=== PATIENT | female | born 1965 | race Caucasian/White ===

== ENCOUNTER 2016-12-04 17:54 | Emergency (ER) | payer MEDICAID ==
[~2016-12-04] VITALS: Ht 162.6 cm; Wt 69.0 kg
[~2016-12-04 17:54] MED LIST: IBUP-1542 PO; OXYC-281 PO
[2016-12-04 17:56] VITALS: Ht 162.6 cm; Wt 69.0 kg
[2016-12-04] MEDS ORDERED: LORA-441 PO (19:02)
[2016-12-04] MEDS ORDERED: TRAM50TA2 PO (19:02)
--- NOTE | 2016-12-04 19:04 | ERD ---
ER Documentation Chief Complaint Date/Time DATE: 12/04/16 TIME: 19:03 Chief Complaint HEADACHE X 4 DAYS HPI This 51-year-old female presents with pain in her face and her bilateral jaw last 4 days. She believes it may be due to stress. Pain is primarily in her TMJ area and maxillary area patient has a history of trauma, fevers, difficulty swallowing, difficulty breathing. She denies any visual changes, vomiting, additional symptoms. ROS All systems reviewed and are negative except as per history of present illness. Medications Home Meds Active Scripts Lorazepam* (Ativan*) 0.5 Mg Tablet, 0.5 MG PO Q8, #12 TAB Prov:DOLORES LANDIN MD 12/04/16 Tramadol HCl (Tramadol HCl) 50 Mg Tablet, 50 MG PO Q4 Y for PAIN, #20 TAB Prov:DOLORES LANDIN MD 12/04/16 Ibuprofen* (Motrin*) 600 Mg Tab, 600 MG PO Q8 for PAIN, #30 Prov:KARI WEEKS MD 04/23/15 Oxycodone Hcl-Acetaminophen* (Percocet*) 5-325 Mg Tablet, 1 TAB PO Q4H Y for PAIN, #10 TAB Prov:KARI WEEKS MD 04/23/15 Allergies Allergies: Coded Allergies: No Known Allergy (Unverified , 04/23/15) PMhx/Soc History of Surgery: Yes (TUBAL LIGATION) Anesthesia Reaction: No Hx Neurological Disorder: No Hx Respiratory Disorders: No Hx Cardiac Disorders: No Hx Psychiatric Problems: No Hx Miscellaneous Medical Probl: No Hx Alcohol Use: No Hx Substance Use: No Hx Tobacco Use: No Physical Exam Vitals Vital Signs Date Time Temp Pulse Resp B/P Pulse Ox O2 Delivery O2 Flow Rate FiO2 12/04/16 17:56 97.8 72 18 147/77 99 Physical Exam Const: [] Alert, [id number] per Head: Atraumatic Eyes: Normal Conjunctiva. Eyes are PERRLA and extraocular movements intact. ENT: Normal External Ears, Nose and Mouth. There is tenderness primarily in the bilateral TMJ joints and slightly in the maxillary area. There is no oral lesions or erythema or swelling and airway is patent. Neck: Full range of motion..~ No meningismus. Resp: Clear to auscultation bilaterally Cardio: Regular rate and rhythm, no murmurs Abd: Soft, non tender, non distended. Normal bowel sounds Skin: No petechiae or rashes Back: No midline or flank tenderness Ext: No cyanosis, or edema Neur: Awake and alert Psych: Normal Mood and Affect Procedures/MDM This patient presents with facial pain for last 4 days. It appears to be localized to the TMJ joint. There is no evidence of cellulitis, airway obstruction and no evidence of any concerning headache symptoms. There is no signs of neurologic deficit, signs of bacterial infection or meningitis. She will be treated with a short course of tramadol and Ativan and instructed to follow-up with primary doctor. The patient was stable with no new complaints during the ER course. Clinically, there is no current evidence to suggest meningitis, sepsis, acute abdomen, pneumonia, acute coronary syndrome, pulmonary embolism, or any other emergent condition appearing to require further evaluation or hospitalization. The patient should certainly return for any new or worsening symptoms per the aftercare instructions. They should otherwise follow-up with her primary care doctor for reevaluation this week. Departure Diagnosis: Primary Impression: TMJ arthralgia Laterality: bilateral Qualified Code: M26.623 - Bilateral temporomandibular joint pain Additional Impression: Headache Headache type: unspecified Headache chronicity pattern: unspecified pattern Intractability: not intractable Qualified Code: R51 - Nonintractable headache, unspecified chronicity pattern, unspecified headache type Condition: Stable Patient Instructions: Self-Care for Headaches, Tmj Syndrome Additional Instructions: Examines normal hoy. Cheque otro vez con dooley doctor primario en el proximo clay or regresa para mas o nueva simptomas. DOLORES LANDIN MD December 04, 2016 19:04
== END 2016-12-04 19:35 | disposition home or self-care (01) ==
LOC: FTE 17:54
DX: M26.623 Arthralgia of bilateral temporomandibular joint (principal)